=== PATIENT | male | born 1945 | race Caucasian/White ===

== ENCOUNTER 2017-09-19 18:42 | Emergency (ER) | payer MEDICARE, OTHER ==
[~2017-09-19] VITALS: Ht 180.3 cm; Wt 73.2 kg
[2017-09-19] MEDS ORDERED: acetaminophen 325mg tablet PO STA (19:57)
[2017-09-19] MEDS ORDERED: normal saline 1000ml 1,000 ML IV ONE (20:00)
[2017-09-19] MEDS ORDERED: cefpodoxime proxetil 100mg tablet PO STA (20:32)
[2017-09-19 20:40] LABS: CLARITY,URINE SLIGHTLY CLOUDY (Clear); COLOR,URINE YELLOW (Yellow); GLUCOSE, URINE NEGATIVE (Neg); KETONES,URINE 15 mg/dl (Neg); LEUKOCYTE ESTERASE ,URINE MODERATE (Neg); NITRITES, URINE POSITIVE (Neg); OCCULT BLOOD,URINE MODERATE (Neg); PH,URINE 5.5 (4.8-8.0); PROTEIN,URINE TRACE mg/dl (Neg); UROBILINOGEN,URINE 0.2 E.U/dL (0.2-1.0)
[2017-09-19 20:40] LABS: CLARITY,URINE SLIGHTLY CLOUDY (Clear); COLOR,URINE YELLOW (Yellow); GLUCOSE, URINE NEGATIVE (Neg); KETONES,URINE 15 mg/dl (Neg); LEUKOCYTE ESTERASE ,URINE SMALL (Neg); NITRITES, URINE POSITIVE (Neg); OCCULT BLOOD,URINE LARGE (Neg); PH,URINE 5.5 (4.8-8.0); PROTEIN,URINE 30 mg/dl (Neg); UROBILINOGEN,URINE 0.2 E.U/dL (0.2-1.0)
[2017-09-19 20:43] LABS: UA COLLECTION TYPE OTHER
[2017-09-19 20:44] LABS: UA COLLECTION TYPE OTHER
[2017-09-19] MEDS ORDERED: CEFP200T13 PO (20:48)
[2017-09-19 20:50] LABS: BACTERIA,URINE 2+ /HPF (Neg); WBC,URINE 30-50 /HPF (0-4)
[2017-09-19 20:51] LABS: MUCUS STRANDS FEW /LPF (Neg); SQUAMOUS EPITHELIAL CELL,UR NONE SEEN /LPF (FEW)
[2017-09-19 20:52] LABS: WBC CLUMPS,URINE MODERATE /HPF (NEGATIVE)
[2017-09-19 20:53] VITALS: BP 114/64
[2017-09-19 20:55] LABS: BACTERIA,URINE 1+ /HPF (Neg); MUCUS STRANDS FEW /LPF (Neg); SQUAMOUS EPITHELIAL CELL,UR NONE SEEN /LPF (FEW); WBC CLUMPS,URINE FEW /HPF (NEGATIVE)
== END 2017-09-19 20:55 | disposition home or self-care (01) ==
LOC: ER 18:43
DX: N39.0 Urinary tract infection, site not specified (principal); Z88.0 Allergy status to penicillin; Z93.6 Other artificial openings of urinary tract status
CPT/HCPCS: 81001; 87077; 87088; 87186; 99284